=== PATIENT | male | born 1970 | race Caucasian/White ===

== ENCOUNTER 2020-05-01 21:23 | Emergency (ER) | payer BC ==
[~2020-05-01] VITALS: Ht 172.7 cm; Wt 111.1 kg
[2020-05-01] MEDS ORDERED: CHANTIX1 EACH PO (23:48)
[2020-05-01] MEDS ORDERED: OMEP20ER (23:48)
== END 2020-05-01 23:49 | disposition home or self-care (01) ==
LOC: ER 21:23
DX: S81.811A Laceration without foreign body, right lower leg, initial encounter (principal)
CPT/HCPCS: 12002; 99282-25